=== PATIENT | female | born 1995 | race Asian ===

== ENCOUNTER 2018-02-06 09:50 | Inpatient (IN) | payer BC ==
[~2018-02-06] VITALS: Ht 157.5 cm; Wt 109.0 kg
[~2018-02-06 09:50] MED LIST: VENTOLIN0.09 MG IH
[2018-02-06] MEDS ORDERED: COZAAR 25MG25 MG/TAB PO (10:09)
[2018-02-06 10:48] LABS: BASO % 0.4 % (0.0-2.0); EOS # 0.2 (0.0-0.7); EOS % 1.8 % (0-4.0); GRAN # 6.4 (1.4-6.5); GRAN % 68.4 % (42.2-75.2); HEMATOCRIT 45.3 % (37.0-47.0); HEMOGLOBIN 15.3 g/dl (12.5-16.0); LYMPH # 2.2 (1.2-3.4); LYMPH % 23.1 % (20.0-51.0); MEAN CELL VOLUME 87 fl (80.0-100.0); MEAN CORPUSCULAR HEMOGLOBIN 30 pg (27.0-31.0); MEAN CORPUSCULAR HGB CONC 34 g/dl (33.0-37.0); MEAN PLATELET VOLUME 10.5 fl (7.4-10.4); MONO # 0.6 (0.1-0.6); MONO % 5.9 % (1.7-9.3); PLATELET COUNT 315 K/mm3 (130-400); RED BLOOD COUNT 5.19 M/mm3 (4.10-5.30); REDCELL DISTRIBUTION WIDTH-CV 11.6 % (11.5-14.5)
[2018-02-06 10:57] LABS: ALBUMIN 4.3 gm/dL (3.5-5.0); BILIRUBIN,TOTAL 0.4 mg/dL (0.0-1.0); CALCIUM 9.3 mg/dL (8.4-10.2); CREATININE, serum 0.67 mg/dL (0.52-1.25); MAGNESIUM 1.9 mg/dL (1.6-2.3); TOTAL PROTEIN 8.2 gm/dL (6.4-8.2)
[2018-02-06 11:29] LABS: TRICYCLIC ANTIDEPRESS URINE NEGATIVE
[2018-02-06 11:44] LABS: ERYTHROCYTE SEDIMENTATION RATE 13 mm/hr (0-20)
[2018-02-06 12:01] LABS: COLLECTION METHOD CLEAN CATCH
[2018-02-06 12:09] LABS: MUCOUS Present /lpf; PH 6 (5-8); SQUAMOUS EPITHELIAL 0-2 /hpf; URINE APPEARANCE Hazy; URINE BACTERIA None Seen /hpf; URINE BILIRUBIN Negative (NEGATIVE); URINE BLOOD Negative (NEGATIVE); URINE COLOR Yellow; URINE GLUCOSE Negative (NEGATIVE); URINE KETONE Negative (NEGATIVE); URINE LEUKOCYTE ESTERASE Trace (NEGATIVE); URINE NITRATE Negative (NEGATIVE); URINE PROTEIN(semi-quant) 2+ (NEGATIVE); URINE RBC 0-2 /hpf; URINE UROBILINOGEN Negative (NEGATIVE)
[2018-02-06 13:00] VITALS: BP 132/69; PULSE 88; TEMP 97.6
[2018-02-06 15:37] VITALS: BP 137/89; PULSE 85; TEMP 97.5
[2018-02-06 16:00] VITALS: BP 127/57
[2018-02-06 19:33] VITALS: BP 149/100; PULSE 93; TEMP 97.8
[2018-02-07] VITALS (368 sets, daily range): BP systolic 141–165; BP diastolic 74–112; PULSE 80–112; TEMP 97.6–98.9; O2SAT 84–100
[2018-02-07 07:18] LABS: BASO % 0.4 % (0.0-2.0); EOS # 0.2 (0.0-0.7); EOS % 1.7 % (0-4.0); GRAN # 6.8 (1.4-6.5); GRAN % 61.6 % (42.2-75.2); HEMATOCRIT 42.7 % (37.0-47.0); HEMOGLOBIN 14.6 g/dl (12.5-16.0); LYMPH # 3.2 (1.2-3.4); LYMPH % 29.5 % (20.0-51.0); MEAN CELL VOLUME 87 fl (80.0-100.0); MEAN CORPUSCULAR HEMOGLOBIN 30 pg (27.0-31.0); MEAN CORPUSCULAR HGB CONC 34 g/dl (33.0-37.0); MEAN PLATELET VOLUME 10.5 fl (7.4-10.4); MONO # 0.7 (0.1-0.6); MONO % 6.3 % (1.7-9.3); PLATELET COUNT 288 K/mm3 (130-400); REDCELL DISTRIBUTION WIDTH-CV 11.8 % (11.5-14.5)
[2018-02-07 07:31] LABS: CALCIUM 9.8 mg/dL (8.4-10.2); CREATININE, serum 0.74 mg/dL (0.52-1.25); POTASSIUM 4.1 mmol/L (3.4-5.0)
[2018-02-08 01:06] VITALS: BP 143/87; PULSE 88; TEMP 97.5
[2018-02-08 04:58] VITALS: BP 146/70; PULSE 101; TEMP 97.2
[2018-02-08 06:08] LABS: BASO # 0.1 (0.0-0.2); BASO % 0.4 % (0.0-2.0); EOS # 0.2 (0.0-0.7); EOS % 1.3 % (0-4.0); GRAN # 9.1 (1.4-6.5); GRAN % 68.5 % (42.2-75.2); HEMATOCRIT 43.8 % (37.0-47.0); HEMOGLOBIN 14.5 g/dl (12.5-16.0); LYMPH # 3.1 (1.2-3.4); LYMPH % 23.1 % (20.0-51.0); MEAN CELL VOLUME 89 fl (80.0-100.0); MEAN CORPUSCULAR HEMOGLOBIN 29 pg (27.0-31.0); MEAN CORPUSCULAR HGB CONC 33 g/dl (33.0-37.0); MEAN PLATELET VOLUME 10.4 fl (7.4-10.4); MONO # 0.8 (0.1-0.6); MONO % 6.1 % (1.7-9.3); PLATELET COUNT 319 K/mm3 (130-400); RED BLOOD COUNT 4.94 M/mm3 (4.10-5.30); REDCELL DISTRIBUTION WIDTH-CV 11.9 % (11.5-14.5)
[2018-02-08 06:13] LABS: CALCIUM 9.5 mg/dL (8.4-10.2); CREATININE, serum 0.74 mg/dL (0.52-1.25); POTASSIUM 4.1 mmol/L (3.4-5.0)
[2018-02-08 08:07] VITALS: BP 138/69; PULSE 88; TEMP 97.7
[2018-02-08 11:48] VITALS: BP 131/87; PULSE 88; TEMP 98.2
[2018-02-08] MEDS ORDERED: GLUCOPHAGE500 MG/TAB PO (15:35)
[2018-02-08] MEDS ORDERED: ASPIRIN 81M81 MG/TA2 PO (15:35)
[2018-02-08] MEDS ORDERED: LIPITOR 40MG TA40 MG PO (15:35)
[2018-02-08] MEDS ORDERED: NORVASC 10MG10 MG PO (15:35)
[2018-02-08] MEDS ORDERED: HCTZ12.5TAB PO (15:35)
[2018-02-08 15:41] VITALS: BP 133/68; PULSE 101; TEMP 98.3
== END 2018-02-08 16:33 | disposition home or self-care (01) | DRG 92 ==
LOC: COL.ER 09:50 → MEDICAL 10:34 → EDBEDREQ 10:59 → MEDICAL 13:57 → ICU 02-07 06:09 → MEDICAL 02-07 06:09 → ICU 02-07 18:30 → MEDICAL 02-07 18:30
PROVIDERS: Emergency Medicine; Hospitalist; Internal Medicine
DX: G83.84 Todd's paralysis (postepileptic) (principal); G45.9 Transient cerebral ischemic attack, unspecified; Z68.41 Body mass index [BMI] 40.0-44.9, adult; G43.409 Hemiplegic migraine, not intractable, without status migrainosus; I16.0 Hypertensive urgency; E66.01 Morbid (severe) obesity due to excess calories; E11.9 Type 2 diabetes mellitus without complications
CPT/HCPCS: 99222-AI; 99232-AI; J7030; Q9967

== ENCOUNTER 2018-02-19 08:19 | Outpatient (CLI) | payer BC ==
[~2018-02-19] VITALS: Ht 157.5 cm; Wt 106.1 kg
[~2018-02-19 08:19] MED LIST changes: +ASPIRIN 81M81 MG/TA2 PO; +COZAAR 25MG25 MG/TAB PO; +GLUCOPHAGE500 MG/TAB PO; +HCTZ12.5TAB PO; +LIPITOR 40MG TA40 MG PO; +NORVASC 10MG10 MG PO
[2018-02-19] MEDS ORDERED: NORVASC 10MG10 MG PO (08:28)
[2018-02-19] MEDS ORDERED: LIPITOR 40MG TA40 MG PO (08:28)
[2018-02-19] MEDS ORDERED: PRINZIDE 12.5 M1 TA1 PO (08:29)
[2018-02-19] MEDS ORDERED: ASPIRIN 81M81 MG/TA2 PO (08:29)
[2018-02-19] MEDS ORDERED: GLUCOPHAGE XR500 M1 PO (08:30)
[2018-02-19 08:50] VITALS: BP 117/74; PULSE 90; TEMP 97.6
[2018-02-19 08:56] LABS: HEMATOCRIT 45.7 % (37.0-47.0); HEMOGLOBIN 15.7 g/dl (12.5-16.0); MEAN CELL VOLUME 87 fl (80.0-100.0); MEAN CORPUSCULAR HEMOGLOBIN 30 pg (27.0-31.0); MEAN CORPUSCULAR HGB CONC 34 g/dl (33.0-37.0); MEAN PLATELET VOLUME 10.6 fl (7.4-10.4); PLATELET COUNT 403 K/mm3 (130-400); RED BLOOD COUNT 5.23 M/mm3 (4.10-5.30); REDCELL DISTRIBUTION WIDTH-CV 11.4 % (11.5-14.5)
[2018-02-19 09:05] LABS: INR 1.1 (0.8-3.0); PROTHROMBIN TIME 12.9 SECONDS (9.7-12.8)
[2018-02-19 09:07] LABS: CREATININE, serum 0.97 mg/dL (0.52-1.25); POTASSIUM 4.1 mmol/L (3.4-5.0)
[2018-02-19 11:00] VITALS: BP 120/70; PULSE 86
[2018-02-19 11:15] VITALS: BP 118/68; PULSE 84
[2018-02-19 11:30] VITALS: BP 118/68; PULSE 84
[2018-02-19 12:00] VITALS: BP 120/71; PULSE 82
--- NOTE | 2018-02-19 12:09 | NUR ---
INT discontinued intact. Discharge instructions given . Transferred to private car by [email or web address]
== END 2018-02-19 12:12 | disposition home or self-care (01) ==
LOC: COL.RAD 08:19
PROVIDERS: Internal Medicine Cardiovascular Disease
DX: G45.9 Transient cerebral ischemic attack, unspecified (principal)
CPT/HCPCS: J2704